=== PATIENT | female | born 1975 | race Caucasian/White ===

== ENCOUNTER 2016-06-16 04:20 | Emergency (ER) | payer OTHER ==
[2016-06-16] MEDS ORDERED: MORPHINE SULFATE 2 MG/ML SYRINGE IVP STA (05:12)
[2016-06-16] MEDS ORDERED: SODIUM CHLORIDE 0.9% 1,000 ML IV STA (05:12)
[2016-06-16] MEDS ORDERED: ONDANSETRON 4 MG/2 ML VIAL IVP STA (05:12)
[2016-06-16 05:28] LABS: Appearance,Urine Cloudy (Clear); Bilirubin,Urine 1+ (Negative); Glucose,Urine (UA) Negative (Negative); Ketones,Urine Negative (Negative); Leukocyte Esterase,Urine Large (Negative); Mucus,Urine Rare /hpf; Nitrite,Urine Positive (Negative); Particle Count 5764; Protein,Urine Negative (Negative); RBC,Urine 30 /hpf (0-5); Specific Gravity,Urine 1.007 (1.001-1.035); Squamous Epithelial Cell,Urine 3 /hpf (0-4); UA Billing (MACRO vs. MICRO) MICRO; WBC,Urine >182 /hpf (0-5)
--- NOTE | 2016-06-16 05:35 | XR ---
EXAM: XR Abdomen, 1 View. CLINICAL HISTORY: Reason: abdominal pain TECHNIQUE: Frontal upright views of the abdomen/pelvis. COMPARISON: No relevant prior studies available. FINDINGS: Intraperitoneal space: Multiple surgical clips within the abdomen and pelvis. Gastrointestinal tract: Mild to moderate amount of colonic stool throughout. No dilation. No free air seen. Bones/joints: No acute abnormality. IMPRESSION: Bowel gas pattern within normal limits with note made of mild to moderate colonic stool burden, and postsurgical changes, as above.
[2016-06-16 05:49] LABS: Basophils % (A) 0 %; CH 28.9; Eosinophils # (A) 0.1 k/uL (0-0.7); Eosinophils % (A) 1 %; HCT 41.3 % (34.0-46.0); HDW 2.28; HGB 13.7 gm/dL (11.4-16.0); Luc # (Auto) 0.12; Luc % (Auto) 1; Lymphocytes # (A) 1.4 k/uL (1.0-4.8); Lymphocytes % (A) 15 %; MCH 29.1 pg (25.0-35.0); MCHC 33.1 g/dL (31.0-37.0); Mean Platelet Volume 7.1; Monocytes # (A) 0.3 k/uL (0-1.0); Monocytes % (A) 3 %; Neutrophils # (A) 7.3 k/uL (1.3-7.7); Neutrophils % (A) 79 %; RDW 12.5 % (11.5-15.5); WBC 9.2 k/uL (3.8-10.6); WBC (Perox) 9.72
[2016-06-16] MEDS ORDERED: CIPROFLOXACIN HCL 500 MG TAB PO STA (05:49)
[2016-06-16 06:07] LABS: Amylase 66 U/L (30-110); Anion Gap 12 mmol/L; Calcium 9.6 mg/dL (8.4-10.2); Carbon Dioxide 25 mmol/L (22-30); Chloride 103 mmol/L (98-107); Glucose 102 mg/dL (74-99); Non-African American GFR(MDRD) >60 (>60 ml/min/1.73 sqM); Sodium 140 mmol/L (137-145); Total Bilirubin 1.1 mg/dL (0.2-1.3); Total Protein 7.6 g/dL (6.3-8.2)
[2016-06-16 06:25] LABS: Potassium 4.8 mmol/L (3.5-5.1)
[2016-06-16 06:26] LABS: AST 26 U/L (14-36); Blood Urea Nitrogen 9 mg/dL (7-17)
[2016-06-16 06:27] LABS: ALT 29 U/L (9-52); Alkaline Phosphatase 70 U/L (38-126)
--- NOTE | 2016-06-16 07:17 | ED ---
Abdominal Pain HPI - General Chief Complaint: Abdominal Pain Stated Complaint: Possible bladder infection Time Seen by Provider: 06/16/16 04:48 Source: patient Mode of arrival: ambulatory Limitations: no limitations - History of Present Illness Initial Comments: Abdominal pain since 8 PM last night, is more focused on the suprapubic area she is also complaining about her dysuria has some chills had some nausea no vomiting though she status post hysterectomy for cervical cancer and she also had episode of small bowel obstruction after the she still have her left overy. No diarrhea no constipation, degree of system is unremarkable otherwise - Related Data Home Medications Medication Instructions Recorded Confirmed Ergocalciferol (Vitamin D2) 50,000 unit PO 06/16/16 [Vitamin D2] Previous Rx's Medication Instructions Recorded Ciprofloxacin HCl [Cipro] 500 mg PO Q12HR #14 tablet 06/16/16 Allergies Allergy/AdvReac Type Severity Reaction Status Date / Time nitrofurantoin Allergy Anaphylaxis Verified 06/16/16 04:29 [From [employer] Review of Systems ROS Statement: Those systems with pertinent positive or pertinent negative responses have been documented in the HPI. ROS Other: All systems not noted in ROS Statement are negative. Past Medical History Past Medical History: Cancer Additional Past Medical History / Comment(s): bladder infection, cervical cancer History of Any Multi-Drug Resistant Organisms: MRSA Date of last positivie culture/infection: 2011 MDRO Source:: forehead Additional Past Surgical History / Comment(s): Oopherectomy Past Psychological History: No Psychological Hx Reported Smoking Status: Never smoker Past Alcohol Use History: Rare Past Drug Use History: None Reported General Exam - General Exam Comments Initial Comments: General: The patient is awake and alert, in no distress, and does not appear acutely ill. Skin: Skin is warm and dry and no rashes or lesions are noted. Eye: Pupils are equal, round and reactive to light, extra-ocular movements are intact; there is normal conjunctiva bilaterally. Ears, nose, mouth and throat: There are moist mucous membranes and no oral lesions. Neck: The neck is supple, there is no tenderness or JVD. Cardiovascular: There is a regular rate and rhythm. No murmur, rub or gallop is appreciated. Respiratory: To auscultation bilateral, no wheezing no rhonchi no distress respiratory [place] noticed Gastrointestinal: Noticed some scars from the previous surgeries, she is tender in suprapubic area positive bowel sounds no guarding no rebounds. Back: There is no tenderness to palpation in the midline. There is no obvious deformity. Musculoskeletal: Normal ROM, no tenderness, There is no pedal edema. There is no calf tenderness or swelling. No cords were appreciated. Neurological: CN II-XII intact, Cranial nerves III through XII are intact. There are no obvious motor or sensory deficits. Coordination appears grossly intact. Speech is normal. Psychiatric: Cooperative, appropriate mood & affect, normal judgment. Limitations: no limitations Course Vital Signs 06/16/16 04:24 Temperature 96.8 F L Pulse Rate 74 Respiratory 18 Rate Blood Pressure 114/68 O2 Sat by Pulse 98 Oximetry Patient was reassessed her around 7 AM and findings were discussed with the patient, CBC,, compressive metabolic panel, creatinine were normal along with the KUB her urinalysis is positive indicating cystitis or early hiatal clinic early she is not tender over the flank areas Medical Decision Making - Lab Data Result diagrams: 06/16/16 05:26 06/16/16 05:26 Lab Results 06/16/16 06/16/16 06/16/16 Range/Units 05:01 05:26 05:26 WBC 9.2 (3.8-10.6) k/uL RBC 4.70 (3.80-5.40) m/uL Hgb 13.7 (11.4-16.0) gm/dL Hct 41.3 (34.0-46.0) % MCV 88.0 (80.0-100.0) fL MCH 29.1 (25.0-35.0) pg MCHC 33.1 (31.0-37.0) g/dL RDW 12.5 (11.5-15.5) % Plt Count 318 (150-450) k/uL Neutrophils % 79 % Lymphocytes % 15 % Monocytes % 3 % Eosinophils % 1 % Basophils % 0 % Neutrophils # 7.3 (1.3-7.7) k/uL Lymphocytes # 1.4 (1.0-4.8) k/uL Monocytes # 0.3 (0-1.0) k/uL Eosinophils # 0.1 (0-0.7) k/uL Basophils # 0.0 (0-0.2) k/uL Sodium 140 (137-145) mmol/L Potassium 4.8 (3.5-5.1) mmol/L Chloride 103 (98-107) mmol/L Carbon Dioxide 25 (22-30) mmol/L Anion Gap 12 mmol/L BUN 9 (7-17) mg/dL Creatinine 0.60 (0.52-1.04) mg/dL Est GFR (MDRD) Af Amer >60 (>60 ml/min/1.73 sqM) Est GFR (MDRD) Non-Af >60 (>60 ml/min/1.73 sqM) Glucose 102 H (74-99) mg/dL Calcium 9.6 (8.4-10.2) mg/dL Total Bilirubin 1.1 (0.2-1.3) mg/dL AST 26 (14-36) U/L ALT 29 (9-52) U/L Alkaline Phosphatase 70 (38-126) U/L Total Protein 7.6 (6.3-8.2) g/dL Albumin 4.7 (3.5-5.0) g/dL Amylase 66 (30-110) U/L Lipase 82 (23-300) U/L Urine Color Dark Brown Urine Appearance Cloudy H (Clear) Urine pH 6.0 (5.0-8.0) Ur Specific [place] 1.007 (1.001-1.035) Urine Protein Negative (Negative) Urine Glucose (UA) Negative (Negative) Urine Ketones Negative (Negative) Urine Blood Small H (Negative) Urine Nitrite Positive H (Negative) Urine Bilirubin 1+ H (Negative) Urine Urobilinogen 4.0 (<2.0) mg/dL Ur Leukocyte Esterase Large H (Negative) Urine RBC 30 H (0-5) /hpf Urine WBC >182 H (0-5) /hpf Urine WBC Clumps Few H (None) /hpf Ur Squamous Epith Cells 3 (0-4) /hpf Urine Mucus Rare H (None) /hpf Disposition Clinical Impression: Cystitis Disposition: HOME SELF-CARE Condition: Good Instructions: Urinary Tract Infection in Women (ED) Additional Instructions: She is advised to return to the ER if her symptoms get worse considering she do not have any primary care physician she agreed to the Prescriptions: Ciprofloxacin HCl [Cipro] 500 mg PO Q12HR #14 tablet
[2016-06-16 07:29] VITALS: BP 104/61; PULSE 63; RESP 14; TEMP 97.3
== END 2016-06-16 07:35 | disposition home or self-care (01) ==
LOC: EC 04:20
DX: N30.90 Cystitis, unspecified without hematuria (principal); R11.0 Nausea; Z79.899 Other long term (current) drug therapy; Z88.8 Allergy status to other drugs, medicaments and biological substances; Z85.41 Personal history of malignant neoplasm of cervix uteri
CPT/HCPCS: 36415; 80053; 82150; 83690; 85025; 81001; 74000; 99284; 96374; 96375; 96361 ×2; J2405; J2270

== ENCOUNTER 2017-02-09 11:25 | Emergency (ER) | payer OTHER ==
[2017-02-09 11:39] VITALS: BP 121/61; PULSE 77; RESP 18; TEMP 98.4
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
== END 2017-02-09 12:20 | disposition home or self-care (01) ==
LOC: EC 11:25
DX: S21.251A Open bite of right back wall of thorax without penetration into thoracic cavity, initial encounter (principal); Z88.1 Allergy status to other antibiotic agents; Z91.041 Radiographic dye allergy status; Z85.41 Personal history of malignant neoplasm of cervix uteri; Z90.710 Acquired absence of both cervix and uterus; Y04.1XXA Assault by human bite, initial encounter; Y92.69 Other specified industrial and construction area as the place of occurrence of the external cause; Y99.0 Civilian activity done for income or pay
CPT/HCPCS: 99283

== ENCOUNTER → 2022-06-29 | Outpatient (CLI) | payer BC ==
--- NOTE | 2022-07-01 11:33 | CA ---
Transthoracic Echo Report Name: Natalee Lang Age: 46 Gender: F : 1975 Exam Date: 06/29/2022 14:00 Exam Location: [facility] Ht (in): 63 Wt (lb): 130 Ordering Physician: Jonh Johnston MD Attending/Referring Phys: Molly Alvarado PAC Director Workers Compensation Shaji Tesfaye RDCS Procedure CPT: Indications: R01.1 Cardiac Hx: Technical Quality: Good Contrast 1: Total Dose (mL): Contrast 2: Total Dose (mL): MEASUREMENTS (Male / Female) Normal Values 2D ECHO LV Diastolic Diameter PLAX 4.5 cm 4.2 - 5.9 / 3.9 - 5.3 cm LV Systolic Diameter PLAX 2.5 cm LV Fractional Shortening PLAX 44.8 % IVS Diastolic Thickness 0.6 cm 0.6 - 1.0 / 0.6 - 0.9 cm IVS Systolic Thickness 1.1 cm LVPW Diastolic Thickness 0.6 cm 0.6 - 1.0 / 0.6 - 0.9 cm LVPW Systolic Thickness 1.2 cm LV Relative Wall Thickness 0.3 LVOT Diameter 2.0 cm LA Systolic Diameter LX 3.1 cm 3.0 - 4.0 / 2.7 - 3.8 cm LV Diastolic Volume MOD BP 93.6 cm??? 67 - 155 / 56 - 104 cm??? LV Systolic Volume MOD BP 36.1 cm??? 22 - 58 / 19 - 49 cm??? LV Ejection Fraction MOD BP 61.4 % >= 55 % LV Stroke Volume MOD BP 57.4 cm??? LV Diastolic Volume MOD 4C 78.9 cm??? LV Systolic Volume MOD 4C 36.3 cm??? LV Ejection Fraction MOD 4C 54.0 % LV Stroke Volume MOD 4C 42.6 cm??? LV Diastolic Length 4C 6.9 cm LV Systolic Length 4C 5.8 cm LV Diastolic Volume MOD 2C 96.0 cm??? LV Systolic Volume MOD 2C 35.6 cm??? LV Ejection Fraction MOD 2C 62.9 % LV Stroke Volume MOD 2C 60.4 cm??? LV Diastolic Length 2C 8.2 cm LV Systolic Length 2C 5.7 cm Ascending Aorta Diameter 2.6 cm M-MODE Aortic Root Diameter MM 2.9 cm LA Systolic Diameter MM 2.9 cm LA Ao Ratio MM 1.0 MV E Point Septal Separation 0.4 cm AV Cusp Separation MM 1.7 cm DOPPLER AV Peak Velocity 124.9 cm/s AV Peak Gradient 6.2 mmHg MV Deceleration [place] 348.4 cm/s??? Mitral E Point Velocity 83.1 cm/s Mitral A Point Velocity 53.5 cm/s Mitral E to A Ratio 1.6 MV Deceleration Time 238.7 ms MV E' Velocity 9.5 cm/s Mitral E to MV E' Ratio 8.8 TR Peak Velocity 105.1 cm/s TR Peak Gradient 4.4 mmHg Right Ventricular Systolic Press 9.4 mmHg PV Peak Velocity 87.0 cm/s PV Peak Gradient 3.0 mmHg RVOT Diameter 2.9 cm FINDINGS Left Ventricle Left ventricular ejection fraction is estimated at 55-60 %. Normal systolic function. Right Ventricle Normal right ventricular size and function. Right Atrium Normal right atrial size. Left Atrium Normal left atrial size. Mitral Valve Trace mitral regurgitation. Aortic Valve Trileaflet aortic valve. Tricuspid Valve Trace to mild tricuspid regurgitation. Pulmonic Valve Structurally normal pulmonic valve. Pericardium Normal pericardium. No pericardial effusion. Aorta Normal size aortic root and proximal ascending aorta. CONCLUSIONS Normal LV size and systolic function. No significant abnormality in the Doppler exam. No pericardial effusion Previewed by: Dr. Cristian Antonio MD (Electronically Signed) Final Date: 01 July 2022 11:33
== END | disposition home or self-care (01) ==
LOC: RADECHMAIN 13:44
PROVIDERS: ATTEND Family Medicine
DX: R01.1 Cardiac murmur, unspecified (principal)
CPT/HCPCS: 93306

== ENCOUNTER 2022-11-14 18:22 | Emergency (ER) | payer BC ==
--- NOTE | 2022-11-14 18:43 | ED ---
General Adult HPI - General Source: RN notes reviewed <Gloria Reyes - Last Filed: 11/14/22 18:43> - General Source: patient, RN notes reviewed <Fabiana Marcus - Last Filed: 11/14/22 22:34> - General Stated complaint: allergic reaction Time Seen by Provider: 11/14/22 18:42 - History of Present Illness Initial comments: 46 year old female presents to the emergency department with a chief complaint of allergic reaction. Patient reports taking Bactrim for the first time for a UTI at approximately 5PM. She Reports a warm sensation to bilateral hands. (Gloria Reyes) 46 over female presents to the emergency department with chief complaint of ALLERGIC reaction. She states that she took Bactrim at around 1700 today and about one hour later started experiencing itching throughout her body. She denies any rash. Denies shortness of breath. She states that she was started on Bactrim for a possible UTI or kidney infection that she was diagnosed with at urgent care yesterday. She reports that she has taken Bactrim in the past without issue. Patient states that she has been experiencing right flank pain 3 days. She denies any urinary frequency, dysuria. She denies fever, chills, nausea, vomiting. (Fabiana Marcus) - Related Data Home Medications Medication Instructions Recorded Confirmed No Known Home Medications 02/09/17 02/09/17 Allergies Allergy/AdvReac Type Severity Reaction Status Date / Time Iodinated Contrast Media Allergy Rash/Hives Verified 11/14/22 18:44 [Iodinated Contrast- Oral and IV Dye] nitrofurantoin Allergy Anaphylaxis Verified 11/14/22 18:44 [From Macrobid] sulfamethoxazole Allergy Rash/Hives Verified 11/14/22 18:45 [From Bactrim] trimethoprim [From Bactrim] Allergy Rash/Hives Verified 11/14/22 18:45 Review of Systems ROS Other: All systems not noted in ROS Statement are negative. <Gloria Reyes - Last Filed: 11/14/22 18:43> ROS Other: All systems not noted in ROS Statement are negative. <Fabiana Marcus - Last Filed: 11/14/22 22:34> ROS Statement: Those systems with pertinent positive or pertinent negative responses have been documented in the HPI. Past Medical History Past Medical History: Asthma, Cancer Additional Past Medical History / Comment(s): bladder infection, cervical cancer History of Any Multi-Drug Resistant Organisms: MRSA Date of last positivie culture/infection: 2011 MDRO Source:: forehead Past Surgical History: Hysterectomy Additional Past Surgical History / Comment(s): Oopherectomy, endoscopic for bowel obstruction Past Psychological History: No Psychological Hx Reported Past Alcohol Use History: Rare Past Drug Use History: None Reported <Gustavojosé luisGloria suresh - Last Filed: 11/14/22 18:43> General Exam <Gustavojosé luisdemetriceGloria - Last Filed: 11/14/22 18:43> Limitations: no limitations General appearance: alert, in no apparent distress Head exam: Present: atraumatic, normocephalic, normal inspection Eye exam: Present: normal appearance, PERRL, EOMI. Absent: scleral icterus, conjunctival injection, periorbital swelling ENT exam: Present: normal exam, mucous membranes moist Neck exam: Present: normal inspection. Absent: tenderness, meningismus, lymphadenopathy Respiratory exam: Present: normal lung sounds bilaterally. Absent: respiratory distress, wheezes, rales, rhonchi, stridor Cardiovascular Exam: Present: regular rate, normal rhythm, normal heart sounds. Absent: systolic murmur, diastolic murmur, rubs, gallop, clicks GI/Abdominal exam: Present: soft, normal bowel sounds. Absent: distended, ten derness, guarding, rebound, rigid Extremities exam: Present: normal inspection, full ROM, normal capillary refill. Absent: tenderness, pedal edema, joint swelling, calf tenderness Back exam: Present: normal inspection, full ROM. Absent: tenderness, CVA tenderness (R), CVA tenderness (L), muscle spasm, paraspinal tenderness, vertebral tenderness, rash noted Neurological exam: Present: alert, oriented X3, CN II-XII intact Psychiatric exam: Present: normal affect, normal mood Skin exam: Present: warm, dry, intact, normal color. Absent: rash <Fabiana Marcus - Last Filed: 11/14/22 22:34> - General Exam Comments Initial Comments: Visual Physical Exam Vital signs reviewed General: Well-appearing, nontoxic, no acute distress. Head: Normocephalic, atraumatic Eyes: PERRLA, EOMI ENT: Airway patent Chest: Nonlabored breathing Skin: No visual rash, normal skin tone Neuro: Alert and oriented 3 Musculoskeletal: No gross abnormalities I performed the quick note portion of this exam, verbal signature Gloria Reyes PA-C (Gloria Reyes) Course Vital Signs 11/14/22 18:41 Temperature 97.8 F Pulse Rate 89 Respiratory 20 Rate Blood Pressure 130/82 O2 Sat by Pulse 98 Oximetry Medical Decision Making - Lab Data Result diagrams: 11/14/22 19:29 11/14/22 19:29 <Fabiana Marcus - Last Filed: 11/14/22 22:34> - Medical Decision Making Was pt. sent in by a medical professional or institution (, [facility], PEST CONTROL APPLICATOR, urgent care, hospital, or group home...) When possible be specific @ -No Did you speak to anyone other than the patient for history (EMS, parent, family, police, friend...)? What history was obtained from this source @ -No Did you review nursing and triage notes (agree or disagree)? Why? @ -I reviewed and agree with nursing and triage notes Were old charts reviewed (outside hosp., previous admission, EMS record, old EKG, old radiological studies, urgent care reports/EKG's, group home records)? Report findings @ -No old charts were reviewed Differential Diagnosis (chest pain, altered mental status, abdominal pain women, abdominal pain men, vaginal bleeding, weakness, fever, dyspnea, syncope, headache, dizziness, GI bleed, back pain, seizure, CVA, palpatations, mental health, musculoskeletal)? @ -Differential Abdominal Pain Women: Appendicitis, Cholecystitis, diverticulosis, ischemic bowel, pancreatitis, hepatitis, UTI, gastroenteritis, AAA, incarcerated hernia, bowel obstruction, constipation, inflammatory bowel, hepatitis, peptic ulcer disease, splenic infarction, perforated viscus, vulvitis, ovarian torsion, PID, kidney stone, placenta abruption, this is not meant to be an all-inclusive list EKG interpreted by me (3pts min.). @ -none X-rays interpreted by me (1pt min.). @ -None done CT interpreted by me (1pt min.). @ -CT abdomen and pelvis showed right-sided 2 mm nonobstructing stone U/S interpreted by me (1pt. min.). @ -None done What testing was considered but not performed or refused? (CT, X-rays, U/S, labs)? Why? @ -None What meds were considered but not given or refused? Why? @ -None Did you discuss the management of the patient with other professionals (pro jasonsionals i.e. , PA, PEST CONTROL APPLICATOR, lab, RT, psych nurse, manager social, inspector returned materials, teacher, earth science technical officer, pillowcase folder)? Give summary @ -No Was smoking cessation discussed for >3mins.? @ -No Was critical care preformed (if so, how long)? @ -No Were there social determinants of health that impacted care today? How? (Homelessness, low income, unemployed, alcoholism, drug addiction, transporta tion, low edu. Level, literacy, decrease access to med. care, penitentiary, rehab)? @ -No Was there de-escalation of care discussed even if they declined (Discuss DNR or withdrawal of care, Hospice)? DNR status @ -No What co-morbidities impacted this encounter? (DM, HTN, Smoking, COPD, CAD, Cancer, CVA, ARF, Chemo, Hep., AIDS, mental health diagnosis, sleep apnea, morbid obesity)? @ -None Was patient admitted / discharged? Hospital course, mention meds given and route, prescriptions, significant lab abnormalities, going to OR and other pertinent info. @ -Discharged. Patient presented to emergency department with chief complaint of allergic reaction and right flank pain. She states that she was started on Bactrim for a urinary tract infection diagnosed by urgent care. She took her first dose today at 1700 and an hour later had full body itching. She denies an y rash. There is no rash on evaluation. Patient was given solu- medrol, Benadryl, Pepcid and improvement in her symptoms. UA was obtained which showed trace blood in the urine and no signs of infection. this will be sent for culture. CT abdomen and pelvis showed a 2 mm nonobstructing stone on the right side. Patient was advised to discontinue antibiotics at this time. We will call her if the culture comes back positive. Patient advised to continue taking Benadryl every 6 hours along with Pepcid. Patient will follow up with her primary care provider. Return precautions discussed. Case discussed with my attending, Dr. Hernandez Undiagnosed new problem with uncertain prognosis? @ -No Drug Therapy requiring intensive monitoring for toxicity (Heparin, Nitro, Insulin, Cardizem)? @ -No Were any procedures done? @ -No Diagnosis/symptom? @ -Generalized allergic reaction Acute, or Chronic, or Acute on Chronic? @ -Acute Uncomplicated (without systemic symptoms) or Complicated (systemic symptoms)? @ -uncomplicated Side effects of treatment? @ -No Exacerbation, Progression, or Severe Exacerbation? @ -No Poses a threat to life or bodily function? How? (Chest pain, [place], [place], pneumonia, PE, COPD, DKA, ARF, appy, cholecystitis, CVA, Diverticulitis, Homicidal, Suicida l, threat to staff... and all critical care pts) @ -No Diagnosis/symptom? @ -Nonobstructing kidney stone Acute, or Chronic, or Acute on Chronic? @ -Acute Uncomplicated (without systemic symptoms) or Complicated (systemic symptoms)? @ -uncomplicated Side effects of treatment? @ -none Exacerbation, Progression, or Severe Exacerbation] @ -no Poses a threat to life or bodily function? @ -no (Fabiana Marcus) - Lab Data Lab Results 11/14/22 11/14/22 11/14/22 Range/Units 19:29 19:29 19:56 WBC 7.3 (3.8-10.6) k/uL RBC 4.50 (3.80-5.40) m/uL Hgb 13.3 (11.4-16.0) gm/dL Hct 40.6 (34.0-46.0) % MCV 90.1 (80.0-100.0) fL MCH 29.5 (25.0-35.0) pg MCHC 32.7 (31.0-37.0) g/dL RDW 12.5 (11.5-15.5) % Plt Count 327 (150-450) k/uL MPV 6.9 Neutrophils % 60 % Lymphocytes % 33 % Monocytes % 5 % Eosinophils % 2 % Basophils % 0 % Neutrophils # 4.3 (1.3-7.7) k/uL Lymphocytes # 2.4 (1.0-4.8) k/uL Monocytes # 0.3 (0-1.0) k/uL Eosinophils # 0.1 (0-0.7) k/uL Basophils # 0.0 (0-0.2) k/uL Sodium 137 (137-145) mmol/L Potassium 4.1 (3.5-5.1) mmol/L Chloride 104 (98-107) mmol/L Carbon Dioxide 26 (22-30) mmol/L Anion Gap 7 mmol/L BUN 12 (7-17) mg/dL Creatinine 0.66 (0.52-1.04) mg/dL Est GFR (CKD-EPI)AfAm >90 (>60 ml/min/1.73 sqM) Est GFR (CKD-EPI)NonAf >90 (>60 ml/min/1.73 sqM) Glucose 125 H (74-99) mg/dL Calcium 9.2 (8.4-10.2) mg/dL Total Bilirubin 1.5 H (0.2-1.3) mg/dL AST 25 (14-36) U/L ALT 15 (4-34) U/L Alkaline Phosphatase 56 (38-126) U/L Total Protein 7.2 (6.3-8.2) g/dL Albumin 4.4 (3.5-5.0) g/dL Urine Color Yellow Urine Appearance Clear (Clear) Urine pH 7.0 (5.0-8.0) Ur Specific Breaks 1.006 (1.001-1.035) Urine Protein Negative (Negative) Urine Glucose (UA) Negative (Negative) Urine Ketones Negative (Negative) Urine Blood Trace H (Negative) Urine Nitrite Negative (Negative) Urine Bilirubin Negative (Negative) Urine Urobilinogen <2.0 (<2.0) mg/dL Ur Leukocyte Esterase Negative (Negative) Urine RBC 5 (0-5) /hpf Urine WBC <1 (0-5) /hpf Ur Squamous Epith Cells 1 (0-4) /hpf Urine Bacteria Occasional H (None) /hpf Disposition <Gloria Reyes - Last Filed: 11/14/22 18:43> Is patient prescribed a controlled substance at d/c from ED?: No Time of Disposition: 22:04 <Fabiana Marcus - Last Filed: 11/14/22 22:34> Clinical Impression: Allergic reaction, Kidney stone on right side Disposition: HOME SELF-CARE Condition: Stable Instructions (If sedation given, give patient instructions): Kidney Stones (ED), General Allergic Reaction (ED) Additional Instructions: Continue taking Benadryl every 6 hours for the next 3-5 days. Discontinue offending medication. Follow up with your primary care provider. Return to the emergency department for new or worsening symptoms. Referrals: Low Vallejo DO [Primary Care Provider] - 1-2 days
[2022-11-14 18:45] VITALS: BP 130/82; PULSE 89; RESP 20; TEMP 97.8
[2022-11-14] MEDS ORDERED: diphenhydrAMINE 50 MG/ML 1 ML VIAL IVP STA (18:49)
[2022-11-14] MEDS ORDERED: methylPREDNISolone SOD SUCCI 125 MG/2 ML VIAL IV STA (18:49)
[2022-11-14] MEDS ORDERED: FAMOTIDINE 20 MG/2 ML VIAL IV STA (19:14)
[2022-11-14 20:11] LABS: Basophils % (A) 0 %; Eosinophils # (A) 0.1 k/uL (0-0.7); Eosinophils % (A) 2 %; HCT 40.6 % (34.0-46.0); HGB 13.3 gm/dL (11.4-16.0); Lymphocytes # (A) 2.4 k/uL (1.0-4.8); Lymphocytes % (A) 33 %; MCH 29.5 pg (25.0-35.0); MCHC 32.7 g/dL (31.0-37.0); MCV 90.1 fL (80.0-100.0); Mean Platelet Volume 6.9; Monocytes # (A) 0.3 k/uL (0-1.0); Monocytes % (A) 5 %; Neutrophils # (A) 4.3 k/uL (1.3-7.7); Neutrophils % (A) 60 %; Platelet Count 327 k/uL (150-450); RDW 12.5 % (11.5-15.5); WBC 7.3 k/uL (3.8-10.6)
[2022-11-14 20:27] LABS: Appearance,Urine Clear (Clear); Bacteria,Urine Occasional /hpf; Bilirubin,Urine Negative (Negative); Blood,Urine Trace (Negative); Color,Urine Yellow; Glucose,Urine (UA) Negative (Negative); Ketones,Urine Negative (Negative); Leukocyte Esterase,Urine Negative (Negative); Nitrite,Urine Negative (Negative); Protein,Urine Negative (Negative); RBC,Urine 5 /hpf (0-5); Specific Gravity,Urine 1.006 (1.001-1.035); Squamous Epithelial Cell,Urine 1 /hpf (0-4); Urobilinogen,Urine <2.0 mg/dL (<2.0); WBC,Urine <1 /hpf (0-5)
[2022-11-14 20:34] LABS: ALT 15 U/L (4-34); AST 25 U/L (14-36); African American GFR (CKD) >90 (>60 ml/min/1.73 sqM); Albumin 4.4 g/dL (3.5-5.0); Alkaline Phosphatase 56 U/L (38-126); Anion Gap 7 mmol/L; Blood Urea Nitrogen 12 mg/dL (7-17); Calcium 9.2 mg/dL (8.4-10.2); Carbon Dioxide 26 mmol/L (22-30); Chloride 104 mmol/L (98-107); Glucose 125 mg/dL (74-99); Non-African American GFR(CKD) >90 (>60 ml/min/1.73 sqM); Potassium 4.1 mmol/L (3.5-5.1); Sodium 137 mmol/L (137-145); Total Bilirubin 1.5 mg/dL (0.2-1.3); Total Protein 7.2 g/dL (6.3-8.2)
--- NOTE | 2022-11-14 21:55 | CT ---
EXAMINATION TYPE: CT abdomen pelvis wo con CT DLP: 458.6 mGycm, Automated exposure control for dose reduction was used. DATE OF EXAM: 11/14/2022 9:19 PM COMPARISON: CT 12/03/2010. CLINICAL INDICATION:Female, 46 years old with history of right flank pain; r ight flank pain TECHNIQUE: Axial CT of the abdomen and pelvis. Sagittal and coronal reformats were created on a [employer] workstation. Contrast used: mL of , (none if empty) Oral contrast used: without Oral Contrast (none if empty) FINDINGS: LOWER CHEST: Unremarkable ABDOMEN LIVER: Unremarkable GALLBLADDER AND BILE DUCTS: Unremarkable. PANCREAS: Unremarkable. SPLEEN: Unremarkable. ADRENAL GLANDS: Unremarkable. KIDNEYS AND URETERS: Right 2 mm contrast. No evidence for obstructive uropathy. No left renal calculi . PELVIS BLADDER: Unremarkable REPRODUCTIVE: Unremarkable. ABDOMEN & PELVIS STOMACH AND BOWEL: No evidence of bowel obstruction. Appendix appears surgically absent. PERITONEUM/RETROPERITONEUM: No evidence of pneumoperitoneum or free fluid. VASCULATURE: No evidence of aortic aneurysm. MUSCULOSKELETAL: No acute osseous abnormalities LYMPH NODES: No gross evidence for lymphadenopathy. SOFT TISSUE/ABDOMINAL WALL: Unremarkable IMPRESSION: No evidence for acute abdominal process. Suspected surgically absent appendix No obstructive uropathy . Nonobstructing right 2 mm calculus.
== END 2022-11-14 22:19 | disposition home or self-care (01) ==
LOC: EC 18:22
DX: N20.0 Calculus of kidney (principal); T36.8X5A Adverse effect of other systemic antibiotics, initial encounter; J45.909 Unspecified asthma, uncomplicated; Z91.041 Radiographic dye allergy status; Z88.2 Allergy status to sulfonamides; Z88.8 Allergy status to other drugs, medicaments and biological substances
CPT/HCPCS: 36415; 80053; 85025; 81001; 74176; 99284; 96374; 96375 ×2; J1200; J2930; J3490

== ENCOUNTER → 2022-12-01 | Outpatient (CLI) | payer BC ==
--- NOTE | 2022-12-01 14:40 | US ---
EXAMINATION TYPE: US abdomen complete DATE OF EXAM: 12/01/2022 COMPARISON: 11/14/2022 CLINICAL INDICATION: Female, 46 years old with history of R10.9 UNSPECIFIED ABDOMINAL PAIN; Rt Kid 2m m nonobstructing stone from CT in ER TECHNIQUE: Multiple sonographic images of the abdomen are obtained. FINDINGS: EXAM MEASUREMENTS: Liver Length: 12.4 cm Gallbladder Wall: 0.2 cm CBD: 0.3 cm Spleen: 9.8 cm Right Kidney: 10.3x4.3x4.4 cm Left Kidney: 11.6x5.2x4.3 cm OIL FIELD OPERATOR NOTES: some limitations due to bowel gas and rib shadows Pancreas: Tail obscured by overlying bowel gas. Visualized portions show no gross abnormal body. Liver: wnl Gallbladder: wnl Evidence for sonographic Saba's sign: No CBD: wnl Spleen: wnl Right Kidney: wnl, no definite stone visualized on US Left Kidney: wnl Upper IVC: wnl Abd Aorta: wnl IMPRESSION: Unremarkable sonographic examination of the abdomen. The punctate 2 mm stone seen in the right kidney on the patient's 11/14/2022 CT is not apparent by ultrasound.
== END | disposition home or self-care (01) ==
LOC: RADUSWWP 08:44
PROVIDERS: ATTEND Family Medicine
DX: N20.0 Calculus of kidney (principal)
CPT/HCPCS: 76700